=== PATIENT | female | born 1985 | race Caucasian/White ===

== ENCOUNTER 2018-10-14 20:08 | Emergency (ER) | payer OTHER ==
[~2018-10-14] VITALS: Ht 160 cm; Wt 73.0 kg
[2018-10-14 20:15] VITALS: Ht 160 cm; Wt 73.0 kg
[2018-10-14] MEDS ORDERED: PHENAZOPYRIDINE 100 MG TAB PO ONE (21:30)
[2018-10-14] MEDS ORDERED: NITR-58 PO (21:54)
[2018-10-14] MEDS ORDERED: PHEN-538 PO (21:54)
[2018-10-14] MEDS ORDERED: NITROFURANTOIN (SR) 100 MG CAP PO ONE (22:00)
[2018-10-14 22:10] VITALS: BP 122/78; PULSE 93; RESP 16
--- NOTE | 2018-10-14 22:27 | ERD ---
ER Documentation Chief Complaint Chief Complaint PAIN/BURNING IN URINATION X3DAYS HPI Patient is a 33-year-old female who presents saying "I think I have a UTI". She has had burning with urination. The symptoms started a few days ago. She just had her period. She has no fevers. She has had no treatment as of yet. Her primary doctor is at [facility] and she has an appointment scheduled within the next 2 weeks. ROS All systems reviewed and are negative except as per history of present illness. Medications Home Meds Active Scripts Phenazopyridine Hcl* (Pyridium*) 200 Mg Tab, 200 MG PO TID PRN for URINARY PAIN, #6 TAB Prov:JOSE HSU MD 10/14/18 Nitrofurantoin Monohyd Macrocr* (Macrobid*) 100 Mg Capsr, 100 MG PO BID for 7 Days, CAP Prov:JOSE HSU MD 10/14/18 Allergies Allergies: Coded Allergies: No Known Allergy (Unverified , 10/14/18) PMhx/Soc Medical and Surgical Hx: pt denies Medical Hx, pt denies Surgical Hx Hx Alcohol Use: No Hx Substance Use: No Hx Tobacco Use: No Smoking Status: Never smoker FmHx Family History: diabetes Physical Exam Vitals Vital Signs Date Temp Pulse Resp B/P (MAP) Pulse Ox O2 O2 Flow FiO2 Time Delivery Rate 10/14/18 98.4 93 16 122/78 97 Room Air 22:10 (93) 10/14/18 97.8 95 19 139/78 98 20:15 (98) Physical Exam Const: No acute distress Head: Atraumatic Eyes: Normal Conjunctiva ENT: Normal External Ears, Nose and Mouth. Neck: Full range of motion. No meningismus. Resp: Clear to auscultation bilaterally Cardio: Regular rate and rhythm, no murmurs Abd: Soft, non tender, non distended. Normal bowel sounds Skin: No petechiae or rashes Back: No midline or flank tenderness Ext: No cyanosis, or edema Neur: Awake and alert Psych: Normal Mood and Affect Results 24 hrs Laboratory Tests Test 10/14/18 21:46 10/14/18 21:48 Bedside Urine pH (LAB) 6.0 Bedside Urine Protein (LAB) Negative Bedside Urine Glucose (UA) Negative Bedside Urine Ketones (LAB) 2+ Bedside Urine Blood Negative Bedside Urine Nitrite (LAB) Negative Bedside Urine Leukocyte Esterase (L 1+ POC Beta HCG, Qualitative NEGATIVE Current Medications Medications Dose Sig/Rosemary Start Time Status Last (Trade) Ordered Route PRN Stop Time Admin Dose Reason Admin 200 mg ONCE ONCE 10/14/18 DC 10/14/18 Phenazopyridi PO 21:30 21:54 ne HCl 10/14/18 21:31 (Pyridium) 100 mg ONCE ONCE 10/14/18 DC 10/14/18 Nitrofurantoi PO 22:00 22:03 n 10/14/18 22:01 Macrocrystals (Macrobid) Procedures/MDM Urine dip is positive for infection. test is negative. Patient is a 33-year-old female who presents with UTI. She will be treated with Pyridium and Macrobid. test was negative. I doubt pyelonephritis and the patient is well-appearing. The patient can follow-up with the primary doctor within 1 week. The patient can return for any worsening symptoms. Departure Diagnosis: Primary Impression: Dysuria Condition: Fair Patient Instructions: Cystitis Referrals: Your doctor Additional Instructions: Call your primary care doctor TOMORROW for an appointment during the next 1 WEEK.Tell the area secretary that you were referred from this facility.See the doctor sooner or return here if your condition worsens before your appointment time. JOSE HSU MD Oct 14, 2018 22:27
== END 2018-10-14 22:18 | disposition home or self-care (01) ==
LOC: E/R 20:08
DX: R30.0 Dysuria (principal)
CPT/HCPCS: 81003; 81025; 99283

== ENCOUNTER 2019-03-28 02:57 | Emergency (ER) | payer OTHER ==
[~2019-03-28] VITALS: Ht 154.9 cm; Wt 74.6 kg
[~2019-03-28 02:57] MED LIST: NITR-58 PO; PHEN-538 PO
[2019-03-28 03:01] VITALS: BP 137/94; PULSE 105; RESP 18; Ht 154.9 cm; Wt 74.6 kg
--- NOTE | 2019-03-28 04:18 | ERD ---
ER Documentation Chief Complaint Chief Complaint CAT SCRATCH TO FOREHEAD AND NOSE HPI This is a 34-year-old female presents emergency department with complaints of scratch to forehead and nose that happened at around 2 AM today at home. Stated that her cat jumped and scratched her face. Stated that her cat was vaccinated. LMP: Last week. G0, . Denies headache, head injury, loss of consciousness, dizziness, neck pain, neck stiffness, throat pain, difficulty swallowing, difficulty breathing lying flat, shoulder pain, chest pain, back pain, abdominal pain, nausea, vomiting, constipation, diarrhea, urinary symptoms, or possibility being , loss of bowel and bladder control, trauma, injury, falls, difficulty walking due to pain, numbness or tingling sensation, calf pain, recent travel, recent major surgery in the last 3 weeks, calf pain, recent long travel, recent exposure to any illness, recent antibiotic use in the last 3 months, fever, chills, seizures. Past medical history: Denies. Surgical history: Denies. Social: Denies smoking, use of alcoholic beverages, use of illegal drugs. ROS All systems reviewed and are negative except as per history of present illness. Medications Home Meds Active Scripts Amoxicillin/Potassium Clav (Amox-Clav 875-125 mg Tablet) 875-125 mg Tab, 1 TAB PO BID for 10 Days, #20 TAB Prov:DURGA KING F 03/28/19 Ibuprofen* (Motrin*) 800 Mg Tab, 800 MG PO Q6H PRN for PAIN AND OR ELEVATED TEMP, #30 TAB Prov:MARÍA ELENA KINGAR F 03/28/19 Phenazopyridine Hcl* (Pyridium*) 200 Mg Tab, 200 MG PO TID PRN for URINARY PAIN, #6 TAB Prov:JOSE HSU MD 10/14/18 Nitrofurantoin Monohyd Macrocr* (Macrobid*) 100 Mg Capsr, 100 MG PO BID for 7 Days, CAP Prov:JOSE HSU MD 10/14/18 Allergies Allergies: Coded Allergies: No Known Allergy (Unverified , 10/14/18) PMhx/Soc Medical and Surgical Hx: pt denies Medical Hx, pt denies Surgical Hx Hx Alcohol Use: No Hx Substance Use: No Hx Tobacco Use: No Smoking Status: Never smoker Physical Exam Vitals Physical Exam Const: No acute distress Head: Atraumatic Eyes: Normal Conjunctiva. No conjunctival injection. No visual field loss. No signs of eye injury. ENT: Normal External Ears, Nose and Mouth. Bilateral ear: TM is not erythematous. No bleeding. No discharge. No hearing loss. No mastoid tenderness. Nose: No nasal flaring. No signs of obstruction. No septal tongue. Throat/Lips: No lip swelling. No tongue swelling. Able to control tongue movement. No drooling. Uvula is in midline and non-displaced. Tonsils are + 1 with no redness and no exudates. Tolerating secretions. Patent airway. Speaks full and clear sentences. No tripoding. Neck: Full range of motion. No meningismus. Nuchal rigidity. No signs of meningeal irritation. Resp: Clear to auscultation bilaterally. No retraction noted. No accessory muscle use in breathing. Cardio: Regular rate and rhythm, no murmurs. Abd: Soft, non tender, non distended. Normal bowel sounds. No abdominal tenderness. Skin: No petechiae. Generalized hives. No vesicular lesions. Superficial scratch/laceration to forehead measuring approximately 7 cm in length. Superficial scratch/laceration to bridge of nose measuring approximately 2 cm length. Back: No midline or flank tenderness Ext: No cyanosis, or edema Neur: Awake and alert. No neurological deficit.. Psych: Normal Mood and Affect Results 24 hrs Current Medications Medications Dose Sig/Rosemary Start Time Status Last (Trade) Ordered Route PRN Stop Time Admin Dose Reason Admin Diphtheria/ 0.5 ml ONCE ONCE 03/28/19 DC 03/28/19 Tetanus/Acell IM* 04:30 03/28/19 04:26 Pertussis 04:31 (Adacel) 875 mg ONCE ONCE 03/28/19 DC 03/28/19 Amoxicillin/ PO 04:30 03/28/19 04:36 Clavulanate 04:31 Potassium (Augmentin) Bacitracin 1 applic ONCE ONCE 03/28/19 DC 03/28/19 (Bacitracin TOP 04:30 03/28/19 04:27 Oint (Ud)) 04:31 Procedures/MDM Diagnostic tests: Clinical exam. Treatment: Adacel. Augmentin. Due to superficial scratch, laceration repair is not indicated at this time. Re-evaluation: No active bleeding. No episode of emesis in the emergency dep artment. No septal hematoma. No neurovascular deficits. No neurological deficits. Stated that she feels much better at this time and that she is ready to go home. Stated that she is comfortable to go home. Differential diagnosis I have low suspicion for tenderness, deep space infection, septal hematoma, eye injury, globe rupture, punctured globe, sepsis. Final diagnosis: Cat scratch. Superficial laceration. Prescription: Augmentin. Motrin. Follow-up with PCP in the next 24-48 hours. Come back here in the emergency department for any new symptoms or any worsening symptoms. All questions and concerns were answered. Patient and family members verbalized understanding and agreed with plan of care. Hemodynamically stable on discharge. Departure Diagnosis: Primary Impression: Scratch lynsey Additional Impressions: Cat scratch Superficial laceration Condition: Stable Additional Instructions: Follow-up with PCP in the next 24-48 hours. Come back here in the emergency department for any new symptoms or any worsening symptoms. DURGA KING Mar 28, 2019 04:18
[2019-03-28] MEDS ORDERED: IBUP800T48 PO (04:20)
[2019-03-28] MEDS ORDERED: AMOX1TAB10 PO (04:20)
[2019-03-28] MEDS ORDERED: DIPHTH/TET/ACEL PERTUSS (ADULT) 0.5 ML VIAL IM* ONE (04:30)
[2019-03-28] MEDS ORDERED: AMOXICILLIN/CLAV 875 MG TAB PO ONE (04:30)
[2019-03-28] MEDS ORDERED: BACITRACIN 0.9 GM OINT TOP ONE (04:30)
== END 2019-03-28 04:41 | disposition home or self-care (01) ==
LOC: FTE 02:57
DX: S01.81XA Laceration without foreign body of other part of head, initial encounter (principal); S01.21XA Laceration without foreign body of nose, initial encounter; W55.03XA Scratched by cat, initial encounter; Y92.009 Unspecified place in unspecified non-institutional (private) residence as the place of occurrence of the external cause; Z23 Encounter for immunization
CPT/HCPCS: 90471; 90715